=== PATIENT | female | born 1950 | race Caucasian/White ===

== ENCOUNTER → 2016-07-10 16:34 | Outpatient (CLI) | payer OTHER | END | disposition home or self-care (01) | LOC: D.MAMMO 15:15 | DX: Z12.31 Encounter for screening mammogram for malignant neoplasm of breast (principal) ==

== ENCOUNTER → 2017-12-18 14:37 | Outpatient (CLI) | payer MEDICARE | END | disposition home or self-care (01) | LOC: D.US 14:37 | DX: R09.89 Other specified symptoms and signs involving the circulatory and respiratory systems (principal); Z12.39 Encounter for other screening for malignant neoplasm of breast ==

== ENCOUNTER 2017-12-26 08:00 | Outpatient (CLI) | payer OTHER | END 2017-12-26 09:10 | disposition home or self-care (01) | LOC: D.MAMMO 08:00 | DX: Z12.31 Encounter for screening mammogram for malignant neoplasm of breast (principal) ==

== ENCOUNTER → 2018-03-20 07:49 | Outpatient (CLI) | payer MEDICARE ==
[~2018-03-20] VITALS: Ht 149.9 cm; Wt 50.0 kg
--- NOTE | ~2018-03-20 | HEMODYNAMI ---
PATIENT:DMITRY WILHELM MEDICAL RECORD: [id number] : 54 LOCATION:[facility] ADMISSION DATE: 03/20/18 Generatedon:03/20/201810:09 Patient name: DMITRY WILHELM Patient #: [id number] SSN: : 1950 Date of study: 03/20/2018 Page: Of Hemodynamic Procedure Report Patient Data Patient Demographics Procedure consent was obtained First Name: DMITRY Gender: Female Last Name: CHOCO : 1950 [facility] Initial: ELEUTERIO Age: 68 year(s) Patient #: [id number] Race: Additional ID: [id number] Contact details Address: [address] [place] [address] State: [place] City: [facility] Zip code: [address] Admission Admission Data Admission Date: 03/20/2018 Admission Time: 7:49 Procedure Procedure Types Cath Procedure Diagnostic Procedure LHC LHC w/Coronaries Sedation Charges Moderate Sedation up to 15 minutes Procedure Description Procedure Date Procedure Date: 03/20/2018 Procedure Start Time: 10:00 Procedure End Time: 10:08 Procedure Staff Name Function Wojciech Reed MD Performing Physician Krista Burns RT Scrub David Devries RN Nurse Deana Prajapati RT Monitor Procedure Data Cath Procedure Fluoroscopy Diagnostic fluoroscopy Total fluoroscopy Time: 0.9 time: 0.9 min min Diagnostic fluoroscopy Total fluoroscopy dose: 104 dose: 104 mGy mGy Contrast Material Contrast Material Type Amount (ml) Isovue 300 42 Entry Location Entry Primary Successful Side Size Upsize Upsize Entry Closure Ogttlieb ccessful Closure Location (Fr) 1 (Fr) 2 (Fr) Remarks Device Remarks Radial Right 6 Fr Mechanical artery Short Compression Estimated blood loss: 10 ml Diagnostic catheters Device Type Used For End Catheter Placement DIAGNOSTIC [place] 110cm 5 Procedure Fr catheter ([id number]) Procedure Complications No complications Procedure Medications Medication Administration Route Dosage Oxygen etCO2 Nasal cannula 2 l/min Heparin Flush Bag added to field 2 bags (1000units/500ml NS) 0.9% NaCl I.V. 100 ml/hr Radial Cocktail added to field 1 syringe (Verapomil 2mg/Nitro 400mcg/Heparin 1500units) Fentanyl I.V. 50 mcg Versed I.V. 1 mg Fentanyl I.V. 25 mcg Versed I.V. 0.5 mg Radial Cocktail I.A. 1 syringe (Verapomil 2mg/Nitro 400mcg/Heparin 1500units) Hemodynamics Rest Heart Rate: 85 (bpm) Pressure Samples Time Site Value (mmHg) Purpose Heart Use Rate(bpm) 10:03 AO 91/35(60) Snapshot 68 Snapshots Pre Cath Intra NCS Post Cath Vital Signs Time Heart Resp SPO2 etCO2 NIBP (mmHg) Rhythm Pain Sedation Rate (ipm) (%) (mmHg) Status Level (bpm) 9:36:15 58 17 98 0 122/67(93) NSR 0 (11) 10(A) , No pain 9:40:21 57 17 97 0 121/65(103) NSR 0 (11) 10(A) , No pain 9:44:26 58 16 96 0 113/67(92) NSR 0 (11) 10(A) , No pain 9:48:24 100 17 98 33.7 134/82(114) NSR 0 (11) 10(A) , No pain 9:52:36 70 17 95 18 111/57(87) NSR 0 (11) 10(A) , No pain 9:56:42 69 17 100 13.5 102/57(82) NSR 0 (11) 9(A) , No pain 10:00:45 63 17 100 24 96/50(78) NSR 0 (11) 9(A) , No pain 10:04:49 71 17 100 24 91/46(66) NSR 0 (11) 9(A) , No pain 10:08:28 71 16 100 27 93/44(67) NSR 0 (11) 9(A) , No pain Medications Time Medication Route Dose Verified Delivered Reason Notes Effectiveness by by 9:47:46 Oxygen etCO2 2 l/min Wojciech Hernandez Per Nasal Brianna Devries RN physician cannula 9:47:54 Heparin Flush added 2 bags Wojciech Hernandez used for Bag to Brianna Devries behavioral intervention specialist (1000units/500ml field NS) 9:48:02 0.9% NaCl I.V. 100 Wojciech Hernandez Per ml/hr Brianna Devries RN physician 9:48:10 Radial Cocktail added 1 Wojciech Hernandez used for (Verapomil to syringe Brianna Devries RN procedure 2mg/Nitro field 400mcg/Heparin 1500units) 9:52:44 Fentanyl I.V. 50 mcg Wojciech Hernandez for sedation Brianna Devries RN 9:52:51 Versed I.V. 1 mg Wojciech Hernandez for sedation Brianna Devries RN 10:01:38 Fentanyl I.V. 25 mcg Wojciech Hernandez for sedation Brianna Devries RN 10:01:43 Versed I.V. 0.5 mg Wojciech Louy for sedation Brianna Devries RN 10:02:43 Radial Cocktail I.A. 1 Wojciech Jeffrey for (Verapomil syringe Brianna Reed MD vasodilation 2mg/Nitro 400mcg/Heparin 1500units) Procedure Log Time Note 9:11:34 Informed consent obtained and on chart 9:11:39 Diagnostic Cath Status : Elective 9:11:56 David Devries RN sent for patient. Start room use. 9:11:57 Time tracking: Regular hours (M-F 7:00 - 5:00) 9:12:02 Plan of Care:Hemodynamics will remain stable., Cardiac rhythm will remain stable., Comfort level will be maintained., Respiratory function will remain adequate., Patient/ family verbilizes understanding of procedure., Procedure tolerated without complication., Recovers from procedure without complications.. 9:34:59 Patient received from Pre/Post Procedure Room to CCL 2 Alert and oriented. Tansferred to table in Supine position. 9:35:00 Warm blankets applied, and anjel hugger turned on for patient comfort. 9:35:01 Correct patient and procedure confirmed by team. 9:35:01 ECG and BP/O2 sat monitors applied to patient. 9:35:03 Vital chart was started 9:35:12 Rhythm: sinus rhythm 9:35:14 Full Disclosure recording started 9:35:19 H&P Date Dictated: 03/20/2018 Within 30 days and on chart., H&P Addendum completed by physician on day of procedure. (MUST COMPLETE FOR ALL OUTPATIENTS). 9:35:20 Pre-procedure instructions explained to patient. 9:35:20 Pre-op teaching completed and patient verbalized understanding. 9:35:22 Family in waiting room. 9:35:23 Patient NPO since Midnight. 9:35:25 Is the patient allergic to Iodine/contrast media? No. 9:35:27 Was the patient premedicated? No 9:35:56 Is patient on blood thinner?No 9:35:57 Patient diabetic? No. 9:36:05 Previous problem with sedation/anesthesia? Yes nausea 9:36:07 Snore? Yes 9:36:08 Sleep apnea? No 9:36:09 Deviated septum? No 9:36:09 Opens mouth fully? Yes 9:36:10 Sticks out tongue? Yes 9:36:12 Airway obstruction? No ? 9:36:14 Dentures? No ? 9:36:17 Pre procedure: right dorsailis pedis pulse 2+ Normal; easily identifiable; not easily obliterated 9:36:19 Pre procedure: left dorsailis pedis pulse 2+ Normal; easily identifiable; not easily obliterated 9:36:21 Patient pain scale 0/10 ?. 9:36:27 IV patent on arrival in left antecubital with 0.9% NaCl at [facility]. 9:36:30 Lab results completed and on chart. 9:36:39 Right Radial & Right Groin area was prepped with chlora-prep and draped in sterile fashion 9:36:41 Alarms reviewed by R. N. 9:36:41 Sharps counted by scrub and verified by R.N. 9:47:46 Oxygen 2 l/min etCO2 Nasal cannula was administered by David Devries RN; Per physician; 9:47:54 Heparin Flush Bag (1000units/500ml NS) 2 bags added to field was administered by David Devries RN; used for procedure; 9:48:02 0.9% NaCl 100 ml/hr I.V. was administered by David Devries RN; Per physician; 9:48:10 Radial Cocktail (Verapomil 2mg/Nitro 400mcg/Heparin 1500units) 1 syringe added to field was administered by David Devries RN; used for procedure; 9:49:52 Physician paged 9:50:16 Baseline sample Acquired. 9:50:24 Physician arrived 9:51:56 --------ALL STOP TIME OUT------ 9:51:57 Final Timeout: patient, procedure, and site verified with staff and physician. All members of the team are in agreement. 9:52:00 Right Radial & Right Groin site verified by team. 9:52:04 Physical assessment completed. ASA score P 2 - A patient with mild systemic disease as per Wojciech Reed MD. 9:52:08 Sedation plan: IV Moderate Sedation Medication:Versed, Fentanyl 9:52:13 Use device set Radial Dx or PCI 9:52:15 ACIST Syringe (54841) opened to sterile field. 9:52:15 Medline Cath Pack ([id number]) opened to sterile field. 9:52:16 Bag Decanter (2002S) opened to sterile field. 9:52:17 DIAGNOSTIC WIRE .035 260cm J wire (576396) opened to sterile field. 9:52:18 ACIST Hand Control (60269) opened to sterile field. 9:52:18 ACIST Manifold (46539) opened to sterile field. 9:52:19 Tegaderm 4 x 4 (1626W) opened to sterile field. 9:52:21 MBrace Wrist Support ([id number]) opened to sterile field. 9:52:23 NEEDLE Cook 21G 4cm Radial (F83958) opened to sterile field. 9:52:28 SHEATH 6Fr Prelude Radial ([id number]) opened to sterile field. 9:52:44 Fentanyl 50 mcg I.V. was administered by David Devries RN; for sedation; 9:52:51 Versed 1 mg I.V. was administered by David Devries RN; for sedation; 9:55:22 Zero performed for pressure channel P1 9:56:42 Zero performed for pressure channel P1 10:00:44 Procedure started. 10:00:55 Local anesthetic to right radial artery with Lidocaine 2% by Wojciech Reed MD.INITIAL ACCESS ONLY 10:01:38 Fentanyl 25 mcg I.V. was administered by David Devries RN; for sedation; 10:01:43 Versed 0.5 mg I.V. was administered by David Devries RN; for sedation; 10:02:13 A 6 Fr Short sheath was inserted into the Right Radial artery 10:02:29 A DIAGNOSTIC [place] 110cm 5 Fr catheter ([id number]) was advanced over the wire and used for Procedure. 10:02:43 Radial Cocktail (Verapomil 2mg/Nitro 400mcg/Heparin 1500units) 1 syringe I.A. was administered by Wojciech Reed MD; for vasodilation; 10:03:18 LV angiography performed. 10:03:47 RCA angiography performed. 10:05:11 LCA angiography performed. 10:05:15 Catheter removed. 10:05:41 TR BAND Standard ([id number]) opened to sterile field. 10:06:00 Sheath removed intact; hemostasis achieved with Mechanical Compression to the Right Radial artery. 10:06:03 Procedure ended.(Physican Out) 10:06:16 Fluoroscopy time 00.90 minutes. 10:06:21 Fluoroscopy dose: 104 mGy 10:06:21 Flurop Dose total: 104 10:06:25 Contrast amount:Isovue 300 42ml. 10:06:27 Sharps counted by scrub and verified by R.N. 10:06:31 TR band inflated with 10cc of air. 10:06:34 Insertion/operative site no bleeding no hematoma. 10:06:37 Post Procedure Pulses reassessed and unchanged 10:06:40 Post-procedure physical assessment completed. ASA score P 2 - A patient with mild systemic disease as per Wojciech Reed MD. 10:06:48 Post procedure rhythm: unchanged. 10:06:51 Estimated blood loss: 10 ml 10:06:53 Post procedure instruction explained to patient.Patient verbalizes understanding. 10:07:06 Procedure type changed to Cath procedure, Diagnostic procedure, LHC, LHC w/Coronaries, Sedation Charges, Moderate Sedation up to 15 minutes 10:07:09 Procedure and supply charges have been captured, reviewed, submitted and are correct. 10:07:32 Procedure Complication : No complications 10:08:16 Vital chart was stopped 10:08:17 See physician's report for complete and final results. 10:08:19 Report given to Pre/Post Procedure Room. 10:08:23 Patient transfered to Pre/Post Procedure Room with Stretcher. 10:08:27 Procedure ended. 10:08:27 Full Disclosure recording stopped 10:08:30 End room use (Document Last) Device Usage Item Name Manufacture Quantity Catalog Number Hospital Part Current M inimal Lot# / Charge Number Stock Stock Serial# Code ACIST Syringe Acist 1 98549 [id number] [id number] [id number] 2 0 (26414) [employer] Inc Medline Cath Cardinal 1 [id number] 298587 75040 439766 5 Pack Health ([id number]) Bag Decanter Microtek 1 2001S 041774 86336 837026 5 (2001S) Medical Inc. DIAGNOSTIC WIRE [place] 1 [id number] 520509 403587 687816 3 0 .035 260cm J wire (861583) ACIST Hand Acist 1 47512 265387 100570 133125 5 Control (73574) [employer] Inc ACIST Manifold Acist 1 81435 272307 287384 579008 5 (04230) [employer] Systems Inc Tegaderm 4 x 4 3M 1 1626W 094630 504221 901659 5 (1626W) MBrace Wrist Advanced 1 140-0250-00 251137 76039 135297 5 Support Vascular ([id number]) Dynamics NEEDLE Cook 21G Cook Medical 1 M86505 193116 619608 737280 5 4cm Radial (X72316) SHEATH 6Fr Merit 1 [id number] 031621 068464 905942 5 Prelude Radial Medical ([id number]) DIAGNOSTIC Terumo 1 40-5546 190536 194498 860447 5 [place] 110cm 5 Fr catheter (607226) TR BAND Terumo 1 [id number] 345598 108094 743661 4 0 Standard ([id number]) Signature Audit [place] Stage Time Signature Unsigned Intra-Procedure 03/20/2018 Deana Prajapati 10:09:30 AM RT(R) Signatures Monitor : Deana Prajapati Signature : RT Date : Time : [facility] [address] [place] [address]
--- NOTE | ~2018-03-20 | OP ---
PATIENT NAME: DMITRY WILHELM MEDICAL RECORD: [id number] :54 LOCATION:D.CAT ADMISSION DATE: SURGEON: GARRET MCINTOSH MD DATE OF OPERATION: 03/20/2018 PROCEDURES: 1. Left heart catheterization. 2. Selective coronary angiography. 3. Left ventriculogram. INDICATION: Chest pain compatible with angina. PROCEDURE IN DETAIL: After informed consent was obtained and after detailed description of risks, benefits as well as alternative therapies, the patient elected to proceed with angiogram and heart catheterization. The right radial area was prepped and draped in normal sterile fashion. Right radial artery was cannulated via modified Seldinger technique with placement of 5-Comoran sheath. All catheters exchanged through this sheath. FINDINGS: Left ventriculogram was performed in standard 30-degree HERNANDEZ view, reveals good cardiac wall motion throughout all segments. Overall ejection fraction estimated at 60%. SELECTIVE CORONARY ANGIOGRAPHY: Left main, left anterior descending, left circumflex, right coronary artery are all smooth-walled vessels with no angiographic evidence of coronary artery disease. OVERALL IMPRESSION: 1. No angiographic evidence of coronary artery disease. 2. Normal left heart pressures. 3. Normal left ventricular systolic function. Chest pain is noncardiac in etiology. No further cardiac workup needs to be ascertained. TRANSINT:[id number] Voice Confirmation ID: [id number] DOCUMENT ID: [id number] GARRET MCINTOSH MD at 1722 CC: [id number] DICTATION DATE: 03/20/18 1010 VALUATION MANAGER: 03/20/18 1027 [facility] [address] [place] [address]
[~2018-03-20 07:49] MED LIST: BAYER CHEWABLE81 MG PO; LEVOTHYROXINE50 MCG PO; PRAVASTATIN SOD10 MG PO
[2018-03-20 08:48] VITALS: BP 133/52; Ht 149.9 cm; Wt 50.0 kg
[2018-03-20 09:07] LABS: BASOPHILS 0.8 % (0-2); EOSINOPHILS 0.8 % (0-7); HEMATOCRIT 37.5 % (36.0-48.0); HEMOGLOBIN 12.6 g/dL (12-16); LYMPHOCYTES 30.6 % (15-50); MCH 28.9 pg (26.0-34.0); MCHC 33.6 g/dL (31.0-37.0); MEAN PLATELET VOLUME 9.7 fL (7.4-10.4); NEUTROPHILS 61.8 % (40-80); PLATELET COUNT 242 10x3/uL (130-400); RBC 4.36 10x6/uL (4.00-5.40); RDW 12.6 % (11.5-14.5); WBC 7.3 10x3/uL (4.8-10.8)
[2018-03-20 09:22] LABS: CALC OSMOLALITY 286 mosm/kg (275-300); CARBON DIOXIDE 27.5 mmol/L (21.0-32.0); CHLORIDE - SERUM 107 mmol/L (98-107); CREATININE - SERUM 0.8 mg/dL (0.6-1.3); GLUCOSE 94 mg/dL (74-106); POTASSIUM - SERUM 4.2 mmol/L (3.5-5.1); SODIUM 143 mmol/L (136-145); UREA NITROGEN 17 mg/dL (7-18); eGFR NON AFRICAN AMERICAN 76 mL/min (90-120)
== END | disposition home or self-care (01) ==
LOC: D.CATH 07:49
PROVIDERS: Internal Medicine Interventional Cardiology
DX: R07.89 Other chest pain (principal); Z01.812 Encounter for preprocedural laboratory examination

== ENCOUNTER → 2019-04-29 12:31 | Outpatient (CLI) | payer MEDICARE ==
[2018-03-20 08:48] VITALS: BMI 22.2
--- NOTE | 2019-05-07 14:07 | EC ---
PATIENT:DMITRY WILHELM DATE OF SERVICE: 04/29/19 SEX: F MEDICAL RECORD: [id number] DATE OF : 54 [facility]GE [facility] PATIENT: 69 ADMISSION DATE: 04/29/19 REFERRING PHYSICIAN: INTERPRETING PHYSICIAN: GARRET REED MD ECHOCARDIOGRAM REPORT ECHO CHARGES 4 ECHO COMPLETE Date: 04/29/19 CLINICAL DIAGNOSIS: MR ECHOCARDIOGRAPHIC MEASUREMENTS (adult normal given) AC root (d.<3.7cm) 2.2 cm LV Septum d (<1.2 cm> 0.7 cm Valve Excursion 1.5 cm LV Septum (systole) 0.9 cm Left Atria (s.<4.0cm> 2.2 cm LVPW d(<1.2cm) 1.0 cm RV (d.<2.3cm) 2.0 cm LVPW (sytole) 1.4 cm LV diastole(<5.6CM) 4.6 cm MV E-F(>70mm/sec) cm LV systole 3.1 cm LVOT Diameter 1.4 cm MV exc.(>10mm) cm Est.ejection fraction (50-75%) % DOPPLER: LVIT cm/sec A 53.0 cm/sec E 72.0 cm/sec LA cm/sec RVSP 15.1 mmHg LVOT 100 cm/sec AOP1/2T m/s Asc. Ao 154 cm/sec RVOT cm/sec RA cm/sec PA cm/sec AV Gradient Peak 9.5 mmHg AV Mean 4.6 mmHg AV Area 1.1 cm MV Gradient Peak 2.2 mmHg MV Mean 0.61 mmHg MV Area cm COMMENTS: OP - HC Lithoduplicator Operator: 1 CHRIS [place] Home Designer: 1 Dr. Reed TAPE# PACS Pericardial Effusion N DATE OF SERVICE: FINDINGS: 1. Left ventricular chamber size is within normal limits. Left ventricular systolic function is normal at 55% to 60%. 2. Left atrium, right atrium and right ventricular chamber sizes are within normal limits. 3. Valvular structures have normal structure and motion. 4. Doppler interrogation reveals mild aortic insufficiency, moderate mitral regurgitation, trace tricuspid regurgitation, no other valvular insufficiency or ECHOCARDIOGRAM REPORT [id number] DMITRY WILHELM stenosis. Pulmonary systolic pressure estimated at 15 mmHg. 5. No evidence of pericardial effusion or left ventricular thrombus. TRANSINT:[id number] Voice Confirmation ID: [id number] DOCUMENT ID: [id number] GARRET REED MD at 1407 CC: [id number] DICTATION DATE: 04/30/19 111 DIGITAL DESIGNER: 04/30/19 1137 DEP CLI 04/29/19 [place] [id number] [place] [id number]
== END | disposition home or self-care (01) ==
LOC: D.HCCECHO 04-28 13:00
PROVIDERS: ATTEND Internal Medicine Interventional Cardiology
DX: I34.0 Nonrheumatic mitral (valve) insufficiency (principal)